=== PATIENT | female | born 1930 | race Caucasian/White ===

== ENCOUNTER → 2017-03-05 | Outpatient (CLI) | payer MEDICARE, BC ==
--- NOTE | 2017-03-06 03:00 | RADRPT ---
PROCEDURE: XR Hip. CLINICAL INDICATION: Left hip pain TECHNIQUE: AP and frog lateral views of the right hip were performed. COMPARISON: None. FINDINGS: The bones are normal and mineralization. No fracture or osseous lesion is identified. Right total hi p prosthesis in place. Left hip joint space narrowing and subchondral sclerosis. Mild subchondral degenerative gliosis of the femoral head. The visualized pelvis and lumbar spine are unremarkable. There are normal joints without evidence of arthritis or effusion. The soft tissues are unremarkabl e. IMPRESSION: 1. No fracture or dislocation. Mild degenerative joint. 2. Intact right total hip prosthesis. RPTAT:AAJJ Eleno Torre Physician Date Time Electronically viewed and signed by Eleno Torre Physician on 03/06/2017 03:00 QUITA/
== END | disposition home or self-care (01) ==
LOC: HKI 14:17
PROVIDERS: ATTEND Orthopaedic Surgery
DX: M16.12 Unilateral primary osteoarthritis, left hip (principal); Z96.641 Presence of right artificial hip joint
CPT/HCPCS: 73502